=== PATIENT | male | born 1990 | race Caucasian/White ===

== ENCOUNTER 2019-01-07 20:21 | Emergency (ER) | payer MEDICAID, OTHER ==
--- NOTE | 2019-01-07 21:55 | XRAY Report ---
Reason: L shoulder pain Procedure Date: 01/07/2019 Accession Number: [id number] / [id number] Procedure: XR - Shoulder 3 View LT CPT Code: FULL RESULT: EXAM: LEFT SHOULDER RADIOGRAPHY EXAM DATE: 01/07/2019 09:35 PM. CLINICAL HISTORY: L shoulder pain. COMPARISON: None. TECHNIQUE: 3 views. FINDINGS: Bones: Normal. No fracture or bone lesion. Joints: The glenohumeral and acromioclavicular joints are normal. Soft tissues: Soft tissue calcification related to the greater tuberosity. Clear visualized lung. IMPRESSION: Calcific periarthritis of the shoulder. RADIA
[2019-01-07] MEDS ORDERED: DEXAMETHASONE 10 MG/ML VIAL PO STA (22:27)
--- NOTE | 2019-01-07 22:29 | ED Physician Documentation ---
History of Present Illness - Stated complaint Stated Complaint: SHOULDER PX - Chief complaint Chief Complaint: Ext Problem - History obtained from History obtained from: Patient - History of Present Illness Timing: How many days ago (several) Pain level max: 7 Pain level now: 5 Improved by: rest Worsened by: movement - Additonal information Additional information: L shoulder pain. 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 Pt is right handed. Review of Systems Constitutional: denies: Fever, Chills GI: denies: Vomiting Skin: denies: Rash Musculoskeletal: denies: Neck pain, Back pain PD PAST MEDICAL HISTORY - Past Medical History Past Medical History: No - Past Surgical History Past Surgical History: No - Present Medications Home Medications: Ambulatory Orders Medication Instructions Recorded Confirmed Meloxicam [Mobic] 15 mg PO DAILY PRN #30 tablet 01/07/19 - Allergies Allergies/Adverse Reactions: Allergies Allergy/AdvReac Type Severity Reaction Status Date / Time No Known Drug Allergies Allergy Verified 01/07/19 20:59 - Social History Does the pt smoke?: No Smoking Status: Never smoker Does the pt drink ETOH?: Yes Does the pt have substance abuse?: No - Immunizations Immunizations are current?: Yes - POLST Patient has POLST: No PD ED PE NORMAL - Vitals Vital signs reviewed: Yes - General General: Alert and oriented X 3, No acute distress - HEENT HEENT: Moist mucous membranes - Neck Neck: Supple, no meningeal sign - Derm Derm: Warm and dry - Extremities Extremities: Other (Left shoulder, mild diffuse tenderness. Pain with range of motion. Neurovascularly intact. No skin changes.) - Neuro Neuro: Alert and oriented X 3 Results - Vitals Vitals: Vital Signs - 24 hr 01/07/19 01/07/19 20:57 22:44 Temperature 36.0 C L 36.3 C L Heart Rate 78 68 Respiratory 16 16 Rate Blood Pressure 147/91 H 126/72 O2 Saturation 100 100 Oxygen O2 Source Room air - Rads (name of study) Left shoulder x-ray Radiology: Prelim report reviewed, EMP read contemporaneously, See rad report (Calcific periarthritis of the shoulder. ) PD MEDICAL DECISION MAKING - ED course Complexity details: reviewed results, considered differential, d/w patient ED course: 28-year-old male with what appears to be calcific periarthritis of the shoulder. Will place on anti-inflammatories for home and follow-up with his doctor. Patient counseled regarding signs and symptoms for which I believe and urgent re-evaluation would be necessary. Patient with good understanding of and agreement to plan and is comfortable going home at this time This document was made in part using voice recognition software. While efforts are made to proofread this document, sound alike and grammatical errors may occur. Departure - Departure Disposition: Home, Self Care Clinical Impression: Calcific periarthritis of left shoulder Condition: Good Instructions: ED Degenerative Joint Disease Follow-Up: your,doctor in 2 weeks [Other] Prescriptions: Meloxicam [Mobic] 15 mg PO DAILY PRN #30 tablet PRN Reason: pain Comments: Use the medication as needed for pain. Return if you worsen. Follow-up with your doctor for further care. Discharge Date/Time: 01/07/19 22:40
[2019-01-07] MEDS ORDERED: MELOXICAM 7.5 MG TABLET PO STA (22:36)
[2019-01-07] MEDS ORDERED: CHERRY SYRUP 10 ML UDC PO ONE (22:36)
[2019-01-07 23:05] VITALS: BP 126/72
[2019-01-08] MEDS ORDERED: MELOXICAM 7.5 MG TABLET PO SCH (09:00)
== END 2019-01-07 22:40 | disposition home or self-care (01) ==
LOC: ED 20:21
DX: M75.02 Adhesive capsulitis of left shoulder (principal)
CPT/HCPCS: 73030; 99283; A9270